=== PATIENT | female | born 1995 | race Hispanic/Latino ===

== ENCOUNTER → 2020-08-22 | Emergency (ER) | payer MEDICAID ==
[~2020-08-22] VITALS: Ht 167.6 cm; Wt 117.9 kg
[~2020-08-22] MED LIST: LIDOCAINE HCL 2% VISCOUS 15 ML UDCUP ONE
[2020-08-22 07:12] VITALS: BP 146/81
== END | disposition home or self-care (01) ==
LOC: EDH 07:10
DX: T16.1XXA Foreign body in right ear, initial encounter (principal); X58.XXXA Exposure to other specified factors, initial encounter; Y93.89 Activity, other specified; Y92.89 Other specified places as the place of occurrence of the external cause; Y99.8 Other external cause status
CPT/HCPCS: 69200